=== PATIENT | male | born 1985 | race Caucasian/White ===

== ENCOUNTER → 2016-05-24 | Outpatient (CLI) | payer MEDICAID ==
[2016-05-24 08:06] LABS: HEMATOCRIT 43.8 % (37.9-51.0); HEMOGLOBIN 14.5 g/dL (13.5-17.0); HGB HCT DIFFERENCE -0.3; MEAN CORPUSCULAR HEMOGLOBIN 30.6 pg (27.0-33.4); MEAN CORPUSCULAR HGB CONC 33.1 g/dL (32.0-36.0); MEAN CORPUSCULAR VOLUME 92 fl (80-97); RED BLOOD COUNT 4.74 10^6/uL (4.35-5.55); WHITE BLOOD COUNT 8.6 10^3/uL (4.0-10.5)
[2016-05-24 08:10] LABS: APPEARANCE,URINE SLIGHTLY-CLOUDY; BILIRUBIN,URINE NEGATIVE (NEGATIVE); GLUCOSE, URINE NEGATIVE (NEGATIVE); KETONES,URINE TRACE mg/dL (NEGATIVE); LEUKOCYTE ESTERASE,URINE NEGATIVE (NEGATIVE); NITRITE,URINE NEGATIVE (NEGATIVE); PROTEIN,URINE NEGATIVE (NEGATIVE); URINE SPECIFIC GRAVITY 1.031; UROBILINOGEN,URINE NEGATIVE mg/dL (<2.0)
[2016-05-24 08:26] LABS: ALANINE AMINOTRANSFERASE 65 U/L (21-72); ALBUMIN 4.4 g/dL (3.5-5.0); ALKALINE PHOSPHATASE 103 U/L (38-126); ANION GAP 13 (5-19); ASPARTATE AMINO TRANSFERASE 30 U/L (17-59); BILIRUBIN,TOTAL 0.5 mg/dL (0.2-1.3); BLOOD UREA NITROGEN 14 mg/dL (7-20); CALCIUM 10.1 mg/dL (8.4-10.2); CARBON DIOXIDE 28 mmol/L (22-30); CHLORIDE 103 mmol/L (98-107); CHOLESTEROL 154.25 mg/dL (0-200); CREATININE RESULT 0.88 mg/dL (0.52-1.25); Direct HDL 29 mg/dL (>40); GLUCOSE 106 mg/dL (75-110); POTASSIUM 4.1 mmol/L (3.6-5.0); SODIUM 144.4 mmol/L (137-145); TOTAL PROTEIN 7.4 g/dL (6.3-8.2); TRIGLYCERIDES 270 mg/dL (<150)
[2016-05-24 08:37] LABS: DIRECT LDL 79 mg/dL (<100); VALPROIC ACID 45.6 ug/mL (50.0-120.0)
== END ==
LOC: OD 07:15
PROVIDERS: ATTEND Nurse Practitioner Psychiatric/Mental Health
DX: F25.9 Schizoaffective disorder, unspecified (principal)
CPT/HCPCS: 36415; 80053; 80061; 80164; 81001; 84146; 84443; 85027

== ENCOUNTER 2016-06-17 03:04 | Emergency (ER) | payer MEDICAID ==
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
[2016-06-17 05:06] LABS: ABSOLUTE BASOPHILS # (AUTO) 0.1 10^3/uL (0.0-0.2); ABSOLUTE LYMPHOCYTES (AUTO) 2.4 10^3/uL (0.5-4.7); ABSOLUTE MONOCYTES (AUTO) 1.2 10^3/uL (0.1-1.4); ABSOLUTE NEUT (AUTO) 8.6 10^3/uL (1.7-8.2); BASOPHILS % (AUTO) 0.7 % (0-2); EOSINOPHILS % (AUTO) 0.2 % (0-6); HEMOGLOBIN 14.8 g/dL (13.5-17.0); HGB HCT DIFFERENCE -0.6; LYMPHOCYTES % (AUTO) 19.3 % (13-45); MEAN CORPUSCULAR HGB CONC 32.8 g/dL (32.0-36.0); MEAN CORPUSCULAR VOLUME 91 fl (80-97); MONOCYTES % (AUTO) 9.7 % (3-13); RED BLOOD COUNT 4.93 10^6/uL (4.35-5.55); SEGMENTED NEUTROPHILS % (AUTO) 70.1 % (42-78); WHITE BLOOD COUNT 12.3 10^3/uL (4.0-10.5)
[2016-06-17 05:36] LABS: ALANINE AMINOTRANSFERASE 78 U/L (21-72); ALBUMIN 4.8 g/dL (3.5-5.0); ALKALINE PHOSPHATASE 101 U/L (38-126); ANION GAP 16 (5-19); ASPARTATE AMINO TRANSFERASE 38 U/L (17-59); BILIRUBIN,DIRECT 0.2 mg/dL (0.0-0.4); BILIRUBIN,TOTAL 0.5 mg/dL (0.2-1.3); BLOOD UREA NITROGEN 13 mg/dL (7-20); CALCIUM 10.7 mg/dL (8.4-10.2); CARBON DIOXIDE 26 mmol/L (22-30); CHLORIDE 105 mmol/L (98-107); CREATININE RESULT 0.87 mg/dL (0.52-1.25); GLUCOSE 116 mg/dL (75-110); LIPASE 41.3 U/L (23-300); SODIUM 147.4 mmol/L (137-145); TOTAL PROTEIN 8.1 g/dL (6.3-8.2)
[2016-06-17 05:41] LABS: VALPROIC ACID 84.9 ug/mL (50.0-120.0)
[2016-06-17 05:48] LABS: ALCOHOL < 10 mg/dL (NONE DETECTED)
[2016-06-17] MEDS ORDERED: METOCLOPRAMIDE HCL ORAL SOLN 10 MG/10 ML UDCUP PO ONE (06:03)
[2016-06-17] MEDS ORDERED: LORAZEPAM INJ 2 MG/1 ML VIAL IV ONE (06:03)
[2016-06-17] MEDS ORDERED: LIDOCAINE 2% VISCOUS SOLN 20 ML UDCUP PO ONE (06:03)
[2016-06-17] MEDS ORDERED: MAG HYDROX/AL HYDROX/SIMETH SUSP 30 ML UDCUP PO ONE (06:03)
[2016-06-17 06:08] LABS: APPEARANCE,URINE SLIGHTLY-CLOUDY; BILIRUBIN,URINE NEGATIVE (NEGATIVE); GLUCOSE, URINE NEGATIVE (NEGATIVE); KETONES,URINE 20 mg/dL (NEGATIVE); LEUKOCYTE ESTERASE,URINE NEGATIVE (NEGATIVE); NITRITE,URINE NEGATIVE (NEGATIVE); PROTEIN,URINE 30 mg/dL (NEGATIVE); URINE SPECIFIC GRAVITY 1.024; UROBILINOGEN,URINE NEGATIVE mg/dL (<2.0)
[2016-06-17 06:16] LABS: URINE BARBITURATES SCREEN NEGATIVE; URINE METHADONE SCREEN NEGATIVE; URINE OPIATES LOW NEGATIVE; URINE PHENCYCLIDINE SCREEN NEGATIVE
[2016-06-17] MEDS ORDERED: LORAZEPAM 1 MG TABLET PO ONE (06:34)
[2016-06-17] MEDS ORDERED: ONDANSETRON 4 MG TAB.RAPDIS PO ONE (06:49)
--- NOTE | 2016-06-17 08:56 | EKG REPORT ---
SEVERITY:- BORDERLINE ECG - SINUS TACHYCARDIA RIGHT AXIS DEVIATION LATE PRECORDIAL R WAVE PROGRESSION ? LEAD PLACEMENT DEFECTIVE : Confirmed by: Latrell Barrios MD 17-Jun-2016 08:55:34
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
[2016-06-17] MEDS ORDERED: OLANZAPINE 5 MG TABLET PO SCH (14:00)
[2016-06-17] MEDS: DIVALPROEX SODIUM 500 MG TAB.SR.24H PO SCH (14:10)
[2016-06-17] MEDS: ZIPRASIDONE HCL 20 MG CAPSULE PO PRN (14:14)
[2016-06-17] MEDS ORDERED: LORAZEPAM INJ 2 MG/1 ML VIAL ONE (21:15)
[2016-06-17] MEDS ORDERED: ZIPRASIDONE MESYLATE INJ/PF 20 MG SDV IM ONE ×2 (21:19→21:56)
[2016-06-17] MEDS ORDERED: LORAZEPAM INJ 2 MG/1 ML VIAL IM ONE (21:19)
--- NOTE | 2016-06-17 21:23 | ER Document Report ---
Doctor's Note Notes: 06/17/16 21:21 Saw and evaluated patient and he tried to elope again. Had to be put in restraints was security was unable to be redirected by security. I ordered Geodon and Ativan. Patient noncommunicative with me on multiple questions. Vital signs are stable will not respond and answer any questions. Nurse inquiring about evening medication. We'll have to contact Dr. Caban as I do not see any medication recommendations.
[2016-06-17] MEDS ORDERED: OLANZAPINE INJ/PF 10 MG SDV IM PRN (21:56)
[2016-06-17] MEDS ORDERED: BENZTROPINE MESYLATE INJ 2 MG/2 ML AMPULE IM ONE (22:00)
[2016-06-17] MEDS ORDERED: TOPIRAMATE 100 MG TABLET PO SCH (22:00)
[2016-06-17] MEDS: BENZTROPINE MESYLATE 1 MG TABLET PO SCH (22:30)
[2016-06-18] MEDS: DIVALPROEX SODIUM 500 MG TAB.SR.24H PO SCH (08:40)
[2016-06-18] MEDS: ZIPRASIDONE HCL 20 MG CAPSULE PO PRN (13:57)
[2016-06-18] MEDS ORDERED: HALOPERIDOL LACTATE INJ 5 MG/1 ML VIAL IM ONE (15:06)
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
[2016-06-18] MEDS: HALOPERIDOL 5 MG TABLET PO SCH (16:53)
--- NOTE | 2016-06-18 21:14 | ER Document Report ---
Doctor's Note Notes: 06/18/16 21:13 Rounds: Patient seen earlier today and evaluated at that time. Late entry note. Vital signs of been essentially normal. Lab studies were also essentially normal except for a white count of very slight elevation 12,600. Patient appears to be medically stable for transfer or discharge. Manuel Randall M.D.
[2016-06-18] MEDS ORDERED: DIVALPROEX SODIUM 250 MG TAB.SR.24H PO SCH (22:00)
[2016-06-19] MEDS: BENZTROPINE MESYLATE 1 MG TABLET PO SCH ×2 (09:15→22:08)
[2016-06-19] MEDS: DIVALPROEX SODIUM 500 MG TAB.SR.24H PO SCH ×2 (09:17→12:41)
[2016-06-19] MEDS ORDERED: LORAZEPAM INJ 2 MG/1 ML VIAL IM ONE (10:55)
[2016-06-19] MEDS ORDERED: HALOPERIDOL LACTATE INJ 5 MG/1 ML VIAL IM ONE (10:55)
--- NOTE | 2016-06-19 11:03 | ER Document Report ---
Doctor's Note Notes: 06/19/16 11:02 Provider note: This is a 30-year-old man with schizophrenia, seizures, diabetes and morbid obesity who was brought into the emergency room June 17 for acute psychosis with active auditory hallucinations and wandering. Patient has been agitated in the emergency room requiring sedation. Patient tried to elope from the ER short while ago. On my physical exam, vital signs are stable. He is afebrile. He is resisting my exam and not cooperating. His lungs are clear and his heart is regular his abdomen is soft and no tenderness is elicited. His extremities are without edema, swelling or skin changes. Review of his labs from June 17 show that he had mild leukocytosis (presumably from agitation), normal electrolytes, glucose of 116, normal urine analysis and a therapeutic valproic acid level. CT of the head from yesterday showed no acute intracranial process. We will check labs from today. He is currently refusing his oral medicines, I will give him some Haldol IM as well as Ativan IM. Currently, the patient's predominant issue appears to be psychiatric and he is waiting placement. 06/19/16 13:51 Note: The patient did attempt to elope again. He was placed in 4. restraints. I reassessed him. He is answering questions to me now. He states he does not want to be here. Denies any pain. Currently, he is alert and he will converse (not much but some). Lungs are clear, heart is regular, abdomen is soft and nontender. His extremities are without any erythema or significant swelling. I reviewed his repeat labs from today and they are stable. His vital signs of remains stable. The patient states that he is hungry and we are going to let him eat. We will continue to follow.
[2016-06-19] MEDS: HALOPERIDOL 5 MG TABLET PO SCH ×2 (12:41→18:21)
[2016-06-19 12:46] LABS: ABSOLUTE LYMPHOCYTES (AUTO) 2.3 10^3/uL (0.5-4.7); ABSOLUTE MONOCYTES (AUTO) 1.2 10^3/uL (0.1-1.4); ABSOLUTE NEUT (AUTO) 8.1 10^3/uL (1.7-8.2); BASOPHILS % (AUTO) 0.4 % (0-2); EOSINOPHILS % (AUTO) 0.1 % (0-6); HEMATOCRIT 44.3 % (37.9-51.0); HEMOGLOBIN 14.9 g/dL (13.5-17.0); HGB HCT DIFFERENCE 0.4; LYMPHOCYTES % (AUTO) 19.5 % (13-45); MEAN CORPUSCULAR HGB CONC 33.7 g/dL (32.0-36.0); MEAN CORPUSCULAR VOLUME 92 fl (80-97); MONOCYTES % (AUTO) 10.6 % (3-13); RED BLOOD COUNT 4.82 10^6/uL (4.35-5.55); RED CELL DISTRIBUTION WIDTH 14.5 % (11.5-14.0); SEGMENTED NEUTROPHILS % (AUTO) 69.4 % (42-78); WHITE BLOOD COUNT 11.6 10^3/uL (4.0-10.5)
[2016-06-19 13:00] LABS: ALANINE AMINOTRANSFERASE 91 U/L (21-72); ALBUMIN 4.3 g/dL (3.5-5.0); ALKALINE PHOSPHATASE 90 U/L (38-126); ANION GAP 19 (5-19); ASPARTATE AMINO TRANSFERASE 67 U/L (17-59); BILIRUBIN,DIRECT 0.3 mg/dL (0.0-0.4); BILIRUBIN,TOTAL 0.7 mg/dL (0.2-1.3); BLOOD UREA NITROGEN 12 mg/dL (7-20); CALCIUM 9.9 mg/dL (8.4-10.2); CARBON DIOXIDE 26 mmol/L (22-30); CHLORIDE 105 mmol/L (98-107); CREATININE RESULT 0.78 mg/dL (0.52-1.25); GLUCOSE 120 mg/dL (75-110); POTASSIUM 3.6 mmol/L (3.6-5.0); SODIUM 149.7 mmol/L (137-145); TOTAL PROTEIN 7.5 g/dL (6.3-8.2)
[2016-06-19 13:28] LABS: THYROID STIMULATING HORMONE 3.16 uIU/mL (0.47-4.68)
--- NOTE | 2016-06-19 17:32 | PSYCHOLOGICAL NOTE ---
Psych Note - Psych Note Psych Note: Conducted check-in with patient who is a 30-year-old male under involuntary commitment at [facility] in the ER. Patient today presents a little nervous/anxious. He has attempted to elope 2 and was initially easily redirected back to his room however on the second attempt he was placed in 4 point restraints. Additionally he refused his medications by mouth and was medicated with IM medications for his safety and stabilization purposes. @1720: Patient was observed laying on his side with his eyes closed but propped up in the bed. Attempted to wake patient to engage in conversation. Patient was observed either mumbling under his breath her moving his mouth as though he were talking and then abruptly stopped and looked at this clinician. He had short brief answers, and eventually stated, "can you just leave me alone." Patient states he is tired. Attempted to continue to engage patient in conversation; however, he appeared to become frustrated. Patient was modestly alert, oriented to name and place, and but not date. Mood was depressed and affect was restricted and blunt. He denied suicidal / homicidal ideation, intent or plan. He endorsed A/V H; delusional noted. Thought processes today were guarded. Conversational speech was congruent with earlier presentations throughout this episode. Intellectual abilities were estimated within the low average range. Attention and concentration was impaired. Insight, judgment, and impulse control was poor 1. 295.90 (F20.9) Schizophrenia Impression / Plan: Patient to continue IVC. Patient presents with significant delusions and hallucinations. Patient's medications were adjusted yesterday and has not likely reached a therapeutic range. Patient continues to demonstrate psychosis. Note patient's attempts to elope are likely related to the psychosis versus noncompliance. Patient will be reevaluated again in the morning and continue to seek placement within a psychiatric facility. I consulted with Dr. Caban in regards to the care and management of this patient. Note, Dr. Caban evaluated the patient 06/18/17 and felt the patient was suffering from an acute onset of prosopagnosia with belief that his mother is actually his fiance of 5 years. He is more confused and psychotic at nightfall, uncharacteristically roofing sales representative of . ED M.D. is in agreement with disposition and recommendations
--- NOTE | 2016-06-19 19:25 | ER Document Report ---
Doctor's Note Notes: 06/19/16 19:25 Asked to evaluate patient for restraints. Examine the patient at the bedside psychotic hallucinating requiring restraints. Patient is not febrile vital signs are stable is no nuchal rigidity no slurred speech heart lungs abdomen regular. Wrote for restraints and medications area.
[2016-06-19] MEDS: HALOPERIDOL 5 MG TABLET PO PRN (22:08)
[2016-06-20] MEDS: DIVALPROEX SODIUM 500 MG TAB.SR.24H PO SCH ×2 (08:34→15:18)
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
[2016-06-20] MEDS: HALOPERIDOL 5 MG TABLET PO SCH (10:35)
[2016-06-20] MEDS: DIVALPROEX SODIUM 250 MG TAB.SR.24H PO SCH (22:48)
[2016-06-20] MEDS: BENZTROPINE MESYLATE 1 MG TABLET PO SCH (22:49)
[2016-06-20] MEDS: TOPIRAMATE 100 MG TABLET PO SCH (22:49)
[2016-06-21] MEDS: HALOPERIDOL 5 MG TABLET PO PRN ×2 (00:19→16:30)
[2016-06-21] MEDS ORDERED: LORAZEPAM INJ 2 MG/1 ML VIAL ONE (00:32)
--- NOTE | 2016-06-21 00:34 | ER Document Report ---
Doctor's Note Notes: 06/21/16 00:34 Also see patient at bedside very agitated hallucinating ongoing psychotic symptoms trying to elope and aggressive toward the staff. Patient placed in restraints given Geodon and Ativan.
[2016-06-21] MEDS ORDERED: ZIPRASIDONE MESYLATE INJ/PF 20 MG SDV IM ONE (00:35)
[2016-06-21] MEDS ORDERED: LORAZEPAM INJ 2 MG/1 ML VIAL IM ONE (00:35)
[2016-06-21] MEDS: HALOPERIDOL 5 MG TABLET PO SCH ×3 (01:31→18:45)
[2016-06-21] MEDS: DIVALPROEX SODIUM 500 MG TAB.SR.24H PO SCH ×2 (08:00→10:50)
--- NOTE | 2016-06-21 12:55 | PSYCHOLOGICAL NOTE ---
Psych Note - Psych Note Psych Note: Patient is presented to [facility] ED via EMS overnight after numerous calls were made to 911 by neighbors as well as the patient's own mother. Patient is reportedly diagnosed with schizophrenia and per his mother has been compliant with his medication regimen. Note patient's valproic acid level was within therapeutic range. Patient this afternoon states he does not know why he is still here. HE states he thinks he is being held here because he tried to kiss his fiance, Shahana. Patient was asked to clarify and states she was here earlier and staff made her leave. Patient states he does not take medications because he does not need them. Patient states he is not hungry when asked about his lunch tray. Patient is unable to maintain eye contact at this time and appears to be responding to internal stimuli. Re-evaluation Patient was put back in 4 point restraints. He has been having difficulties with his hallucinations i.e. running from the room because he thought zombies were in his room and asking the attending nurse if she was a ghost. Clinician spoke with the patient's mother, she states that the patient is not at baseline yet. normally he can be trusted to be home alone for a few hours at a time and to take his medications on his own during that time. Currently the patient wouls be unable to do this. The patient did recognize his mother as his mother and not his fiancee today. She states it seems as if the patient' s awareness is waxing and waning. 298.9 (F29) Unspecified schizophrenia and other psychotic disorder Patient is recommended to remain under IVC and seek 24-hour inpatient psychiatric commitment. Patient is currently still unable to discern between reality and his hallucinations. I consulted with Dr. Caban in regards to the care and management of this patient.
--- NOTE | 2016-06-21 19:18 | ER Document Report ---
Doctor's Note Notes: 06/21/16 19:17 Late entry Rounds. Patient still exhibits psychosis tendency. However, he did ask me if he could be discharged, to which I replied that that was someone else' s decision to make and not mine. Vital signs remained stable. Lab studies were all normal. Patient appears to be medically stable for transfer or discharge. Manuel Randall M.D.
[2016-06-21] MEDS: DIVALPROEX SODIUM 250 MG TAB.SR.24H PO SCH (21:23)
[2016-06-21] MEDS: BENZTROPINE MESYLATE 1 MG TABLET PO SCH (21:24)
[2016-06-21] MEDS: TOPIRAMATE 100 MG TABLET PO SCH (21:25)
[2016-06-22] MEDS: HALOPERIDOL 5 MG TABLET PO PRN (05:51)
[2016-06-22] MEDS: DIVALPROEX SODIUM 500 MG TAB.SR.24H PO SCH (08:30)
[2016-06-22] MEDS: HALOPERIDOL 5 MG TABLET PO SCH ×2 (09:54→18:35)
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
--- NOTE | 2016-06-22 20:27 | ER Document Report ---
Doctor's Note Notes: 06/22/16 20:26 Late entry for Rounds: Chart reviewed and patient interviewed. Patient seems to be improving some and calmer. Vital signs are all normal. Lab studies have all been essentially normal as well. Patient appears to be medically stable for transfer or discharge. Manuel Randall M.D.
[2016-06-22] MEDS: TOPIRAMATE 100 MG TABLET PO SCH (21:45)
[2016-06-22] MEDS: DIVALPROEX SODIUM 250 MG TAB.SR.24H PO SCH (21:45)
[2016-06-22] MEDS: BENZTROPINE MESYLATE 1 MG TABLET PO SCH (21:45)
[2016-06-23] MEDS: DIVALPROEX SODIUM 500 MG TAB.SR.24H PO SCH ×2 (00:32→12:30)
[2016-06-23] MEDS: HALOPERIDOL 5 MG TABLET PO PRN (05:21)
--- NOTE | 2016-06-23 09:17 | ER Document Report ---
Doctor's Note Notes: 06/23/16 09:17 As the rounding physician for our psychiatric patients, I have reviewed the chart, vitals, lab work. Patient has been examined and noted to be resting comfortably . I am awaiting mental health in put. 06/23/16 10:10
[2016-06-23] MEDS: HALOPERIDOL 5 MG TABLET PO SCH (09:32)
[2016-06-23] MEDS ORDERED: HALOPERIDOL DECANOATE INJ 100 MG/1 ML VIAL IM ONE (11:59)
[2016-06-23] MEDS ORDERED: RISPERIDONE 0.25 MG TABLET PO SCH (12:00)
--- NOTE | 2016-06-23 12:52 | PSYCHOLOGICAL NOTE ---
Psych Note - Psych Note Psych Note: Patient is presented to [facility] via EMS overnight after numerous calls were made to 911 by neighbors as well as the patient's own mother. Patient is reportedly diagnosed with schizophrenia and per his mother has been compliant with his medication regimen. Note patient's valproic acid level was within therapeutic range. Patient this afternoon states he does not know why he is still here. HE states he thinks he is being held here because he tried to kiss his fiance, Shahana. Patient was asked to clarify and states she was here earlier and staff made her leave. Patient states he does not take medications because he does not need them. Patient states he is not hungry when asked about his lunch tray. Patient is unable to maintain eye contact at this time and appears to be responding to internal stimuli. Re-evaluation Chart view indicated the patient had another difficult night was required to be put in restraints. Patient was observed attempting to remove his bed from his room stating it was his friend. He also stated that one of [facility] staff was his son. Clinician notes patient has been demonstrating difficulty every night in a "sundowners" like manner. Patient states that he had the "hooligan dream again." He states that is why he tried to leave. He continued disclosed that he lives with his brothers and mother. When asked if he has a significant other patient states a ; Lady then became upset stating "Shahana sorry its Shahana." Currently patient is calm and engages with clinician. 298.9 (F29) Unspecified schizophrenia and other psychotic disorder Patient is recommended to remain under IVC and seek 24-hour inpatient psychiatric commitment. Patient is currently still unable to discern between reality and his hallucinations. I consulted with Dr. Caban in regards to the care and management of this patient.
[2016-06-23] MEDS: TOPIRAMATE 100 MG TABLET PO SCH (22:00)
[2016-06-23] MEDS: BENZTROPINE MESYLATE 1 MG TABLET PO SCH (22:00)
[2016-06-23] MEDS ORDERED: DIVALPROEX SODIUM 125 MG CAP.SPRINK PO SCH (22:00)
[2016-06-23] MEDS ORDERED: DIPHENHYDRAMINE HCL 50 MG/ML VIAL IM ONE (23:44)
[2016-06-23] MEDS ORDERED: DIAZEPAM INJ 10 MG/2 ML DISP.SYRIN IM ONE (23:45)
[2016-06-24] MEDS ORDERED: DIVALPROEX SODIUM 125 MG CAP.SPRINK PO SCH ×4 (08:00→22:00)
[2016-06-24] MEDS ORDERED: HALOPERIDOL 5 MG TABLET PO PRN ×2 (08:46→09:30)
--- NOTE | 2016-06-24 09:23 | ER Document Report ---
Doctor's Note Notes: 06/24/16 09:23 Lab work vital signs have been reviewed. At this time patient is currently stable with no overnight events requiring no intervention at this time. Patient stable for transfer or other disposition
[2016-06-24] MEDS ORDERED: RISPERIDONE 0.25 MG TABLET PO SCH (10:00)
[2016-06-24] MEDS ORDERED: DIVALPROEX SODIUM 125 MG CAP.SPRINK PO ONE (10:00)
[2016-06-24] MEDS ORDERED: HALOPERIDOL 5 MG TABLET PO SCH (10:00)
[2016-06-24] MEDS: RISPERIDONE 0.25 MG TABLET PO SCH ×2 (10:04→17:55)
[2016-06-24] MEDS: HALOPERIDOL 5 MG TABLET PO SCH ×2 (10:04→17:55)
[2016-06-24] MEDS ORDERED: FOLIC ACID 1 MG TABLET PO ONE (11:22)
[2016-06-24] MEDS ORDERED: TOPIRAMATE 100 MG TABLET PO SCH ×2 (22:00)
[2016-06-24] MEDS ORDERED: BENZTROPINE MESYLATE 1 MG TABLET PO SCH ×2 (22:00)
[2016-06-25] MEDS ORDERED: DIVALPROEX SODIUM 125 MG CAP.SPRINK PO SCH (08:00)
--- NOTE | 2016-06-25 10:11 | ER Document Report ---
Doctor's Note Notes: 06/25/16 10:11 Medical rounds: Chart reviewed and patient interviewed briefly. Vital signs are acceptable. Laboratory values are remarkable for a subtherapeutic valproic acid level. On examination, he is alert and appears to be in no distress. He is massively obese. He would not engage in conversation with this examiner. He does appear to be medically stable at this time. It is my understanding that he has been accepted for transfer to [facility] later today. 06/25/16 10:12
[2016-06-25] MEDS: HALOPERIDOL 5 MG TABLET PO SCH (10:46)
[2016-06-25] MEDS: RISPERIDONE 0.25 MG TABLET PO SCH (10:46)
--- NOTE | 2016-06-25 14:12 | ER Document Report ---
Doctor's Note Notes: 06/25/16 14:09 Re-evaluation prior to transfer: Patient is in no apparent distress. He is alert. Vital signs are satisfactory. He is medically stable for transport.
[2016-06-25 14:38] VITALS: BP 142/82
== END 2016-06-25 14:05 ==
LOC: ER 03:04
DX: F20.9 Schizophrenia, unspecified (principal); F41.9 Anxiety disorder, unspecified; E11.9 Type 2 diabetes mellitus without complications; D72.829 Elevated white blood cell count, unspecified; I10 Essential (primary) hypertension; R00.0 Tachycardia, unspecified; R10.816 Epigastric abdominal tenderness; E66.01 Morbid (severe) obesity due to excess calories; Z68.43 Body mass index [BMI] 50.0-59.9, adult; Z78.1 Physical restraint status; Z79.899 Other long term (current) drug therapy; Z86.39 Personal history of other endocrine, nutritional and metabolic disease
CPT/HCPCS: 93005; 99285; 96372; 36415; 84439; 82962; 80307 ×4; 83690; 84443; 85025; 80053; 81001; 80164; 70551; 71010; 70450; 93010; J3490 ×26; J1631; J1200; S0119; J2060; J3486